=== PATIENT | female | born 1935 | race Caucasian/White ===

== ENCOUNTER 2018-02-13 19:12 | Observation (INO) ==
--- NOTE | 2018-02-13 21:20 | Emergency Department Note ---
Disposition Clinical Impression: Atypical chest pain Disposition: Admitted As Inpatient Time of Disposition: 23:10 General Adult HPI - General Chief complaint: ED Chest Pain Stated complaint: "States Heart Feels Funny" Time Seen by Provider: 02/13/18 21:00 Source: patient Mode of arrival: ambulatory Limitations: no limitations Nursing Notes Reviewed: Yes Vital Signs Reviewed: Yes - History of Present Illness HPI Narrative: She is 82 year old woman with pmh significant for HTN, HLD, pacemaker, anxiety, who presents to ED complaining of chest pressure. The pressure started while doing housework and is located in L peristernal with radiation to L shoulder. She states she had no pain just discomfort, denied sob, diaphoresis, diplopia, blurry vision, presyncope, syncope, fall, numbness/paresthesia, muscle weakness , hx of DVT. When the episodes occur they last varying amounts of time from minutes to hours. Was worse with exertion today. Says she has had similar feeling previously when her BP was high. Pt Subjective Complaint: chest discomfort Onset (ago): hour(s) Location: chest Radiation: extremity (L shoulder) Pain Severity: moderate Pain Scale: 4 Quality: other (pressure) Consistency: intermittent Improves with: nothing Worsens with: movement Associated symptoms: Reports: other (nausea ) Treatments Prior to Arrival: none - Related Data Home Medications Medication Instructions Recorded Confirmed Aspirin Enteric Coated [Aspirin EC] 81 mg PO QAM 12/07/14 02/13/18 Atorvastatin [Lipitor] 20 mg PO HS 02/10/15 02/13/18 Levothyroxine [Synthroid] 50 mcg PO QAM 02/10/15 02/13/18 Mirtazapine 3.75 mg PO HS 11/24/15 02/14/18 Calcium Carbonate/Vitamin D3 1 each PO DAILY 02/13/18 02/13/18 [Calcium 500 mg Chewable Tablet] Cholecalciferol (Vitamin D3) 2,000 unit PO DAILY 02/13/18 02/13/18 [Vitamin D] Previous Rx's Medication Instructions Recorded Carvedilol [Coreg] 25 mg PO BID #60 tablet 02/22/15 Allergies Allergy/AdvReac Type Severity Reaction Status Date / Time No Known Allergies Allergy Verified 08/02/17 14:04 All systems ED: reviewed and negative except as stated. Eyes: Denies: vision change Cardiovascular: Denies: chest pain, palpitations, dyspnea on exertion, edema, syncope Respiratory: Denies: dyspnea Gastrointestinal: Reports: nausea. Denies: abdominal pain, vomiting Musculoskeletal: Denies: neck pain Neurological: Reports: headache. Denies: numbness, paresthesias, confusion Psychiatric: Reports: anxiety Past Medical History - Past Medical History Medical history: Reports: cardiomyopathy, hypertension Surgical history: Reports: hysterectomy, orthopedic, other, pacemaker/AICD Psychiatric history: Reports: no psych history HOP GROWER history: Reports: no HOP GROWER history - Social History Smoking Status: Never smoker Smokeless Tobacco Status: No Alcohol use: Reports: none Drug use: Reports: none Physical Exam - General Limitations: no limitations General appearance: alert, in no apparent distress - Head Head exam: atraumatic, normocephalic, normal inspection - Eye Eye exam: Present: normal appearance - ENT ENT exam: mucous membranes moist - Neck Neck exam: Present: trachea midline - Chest Chest inspection: Present: normal inspection, symmetric chest wall rise - Respiratory Respiratory exam: Present: normal lung sounds bilaterally - Cardiovascular Cardiovascular exam: Present: regular rate, normal rhythm, normal heart sounds, +S1, +S2 - Abdominal Exam Abdominal exam: Present: soft, Non-Tender - Extremities Exam Extremities exam: Present: normal inspection, normal capillary refill. Absent: pedal edema, calf tenderness - Expanded Lower Extremity Exam Neurovascular/Tendon exam: Present: normal capillary refill - Neurological Exam Neurological exam: Present: alert - Psychiatric Psychiatric exam: Present: normal affect - Skin Skin exam: Present: warm, dry, intact, normal color Course Course Narrative: Presents to ED 4 hours post chest pressure with L shoulder radiation that was worse with exertion. Symptoms began while doing house work. BP 178/83. Will get cbc, bmp, troponin, cxr, and ECG now. ECG 1937: nsr, hr 66, pr 299, qt 406, decreased amplitude st v2, electronic atrial pacemaker, no acute changes when compared to ECG from 06/09/15. 2139: Troponin neg, no acute abnormality on cxr. No pain currently but states she had the chest discomfort when standing for the cxr previously. 2299: Will repeat troponin now. She does not feel comfortable going home with her current chest discomfort. HEART score 4. Hospitalist service accepted admission. Vital Signs Temperature 98.2 F 02/13/18 19:33 Pulse Rate 70 02/13/18 19:33 Respiratory Rate 16 02/13/18 19:33 Blood Pressure 178/83 02/13/18 19:33 O2 Sat by Pulse Oximetry 99 02/13/18 19:33 Temperature 98.2 F 02/13/18 23:42 Pulse Rate 63 02/13/18 23:42 Respiratory Rate 16 02/13/18 23:42 Blood Pressure 153/71 02/13/18 23:42 O2 Sat by Pulse Oximetry 99 02/13/18 23:42 Oxygen Delivery Oxygen Delivery Room Air Medical Decision Making - Lab Data Result diagrams: 02/13/18 19:50 02/13/18 19:50 Lab Results 02/13/18 02/13/18 02/13/18 Range/Units 19:40 19:50 19:50 WBC 6.8 (4.3-11.1) K/mcL RBC 3.80 L (3.82-4.97) M/mcL Hgb 11.8 (11.5-15.4) g/dL Hct 36.8 (35.3-44.9) % MCV 96.8 (83.0-100.0) fL MCH 31.1 (28.0-33.3) pg MCHC 32.1 (31.6-35.5) g/dL RDW 11.7 (11.5-14.5) % Plt Count 259 (140-400) K/mcL MPV 10.6 (9.4-12.4) fL Immature Gran % 0.3 (0-4) % Seg Neutrophils % 73.0 % Lymphocytes % 17.6 % Monocytes % 6.4 % Eosinophils % 2.6 % Basophils % 0.1 % Neutrophils # 5.0 (1.6-8.9) K/mcL Lymphocytes # 1.2 (0.6-4.6) K/mcL Monocytes # 0.4 (0.0-1.3) K/mcL Eosinophils # 0.2 (0.0-0.6) K/mcL Basophils # 0.0 (0.0-0.2) K/mcL PT 12.1 (9.4-12.1) Seconds INR 1.1 APTT 39.7 H (26.0-36.0) Seconds Sodium 141 (136-145) mEq/L Potassium 4.0 (3.5-5.1) mEq/L Chloride 104 (98-107) mEq/L Carbon Dioxide 27 (23-29) mEq/L BUN 24 H (8-23) mg/dL Creatinine 1.82 H (0.60-1.20) mg/dL Est GFR ( Amer) 32 L (> 60) Est GFR (Non-Af Amer) 27 L (> 60) BUN/Creatinine Ratio 13 (6-26) Glucose 141 H (70-105) mg/dL Calculated Osmolality 298 (280-300) Calcium 10.2 (8.6-10.3) mg/dL Troponin I < 0.03 (< 0.04) ng/mL 02/13/18 Range/Units 22:53 WBC (4.3-11.1) K/mcL RBC (3.82-4.97) M/mcL Hgb (11.5-15.4) g/dL Hct (35.3-44.9) % MCV (83.0-100.0) fL MCH (28.0-33.3) pg MCHC (31.6-35.5) g/dL RDW (11.5-14.5) % Plt Count (140-400) K/mcL MPV (9.4-12.4) fL Immature Gran % (0-4) % Seg Neutrophils % % Lymphocytes % % Monocytes % % Eosinophils % % Basophils % % Neutrophils # (1.6-8.9) K/mcL Lymphocytes # (0.6-4.6) K/mcL Monocytes # (0.0-1.3) K/mcL Eosinophils # (0.0-0.6) K/mcL Basophils # (0.0-0.2) K/mcL PT (9.4-12.1) Seconds INR APTT (26.0-36.0) Seconds Sodium (136-145) mEq/L Potassium (3.5-5.1) mEq/L Chloride (98-107) mEq/L Carbon Dioxide (23-29) mEq/L BUN (8-23) mg/dL Creatinine (0.60-1.20) mg/dL Est GFR ( Amer) (> 60) Est GFR (Non-Af Amer) (> 60) BUN/Creatinine Ratio (6-26) Glucose (70-105) mg/dL Calculated Osmolality (280-300) Calcium (8.6-10.3) mg/dL Troponin I 0.03 (< 0.04) ng/mL
[2018-02-13 21:32] LABS: Basophils % 0.1 %; Eosinophils # 0.2 K/mcL (0.0-0.6); Eosinophils % 2.6 %; Hematocrit 36.8 % (35.3-44.9); Hemoglobin 11.8 g/dL (11.5-15.4); Immature Granulocytes % 0.3 % (0-4); Lymphocytes # 1.2 K/mcL (0.6-4.6); Lymphocytes % 17.6 %; Mean Corpuscular HGB Conc 32.1 g/dL (31.6-35.5); Mean Corpuscular Hemoglobin 31.1 pg (28.0-33.3); Mean Corpuscular Volume 96.8 fL (83.0-100.0); Mean Platelet Volume 10.6 fL (9.4-12.4); Monocytes # 0.4 K/mcL (0.0-1.3); Monocytes % 6.4 %; Platelet Count 259 K/mcL (140-400); Red Cell Distribution Width 11.7 % (11.5-14.5); Troponin I < 0.03 ng/mL (< 0.04)
[2018-02-13 21:36] LABS: INR 1.1; Prothrombin Time 12.1 Seconds (9.4-12.1)
[2018-02-13 21:39] LABS: Activated Partial Thrombo Time 39.7 Seconds (26.0-36.0)
[2018-02-13 21:40] LABS: BUN/Creatinine Ratio 13 (6-26); Blood Urea Nitrogen 24 mg/dL (8-23); Calcium 10.2 mg/dL (8.6-10.3); Carbon Dioxide 27 mEq/L (23-29); Chloride 104 mEq/L (98-107); Glucose 141 mg/dL (70-105); Osmolality,Calculated 298 (280-300); Sodium 141 mEq/L (136-145); eGFR For Non-African Americans 27 (> 60)
[2018-02-13] MEDS ORDERED: Aspirin 81 MG TAB.CHEW PO STA (23:02)
[2018-02-14] MEDS ORDERED: Naloxone 0.4 MG/ML INJ IVP PRN (00:19)
[2018-02-14] MEDS ORDERED: Nitroglycerin 0.4 MG TAB.SUBL SL PRN (00:27)
[2018-02-14 00:42] LABS: Bilirubin,Urine Negative (Negative); Blood,Urine Negative (Negative); Clarity,Urine Clear (Clear); Color,Urine Yellow (Yellow); Glucose,Urine (UA) Normal (Normal); Ketones,Urine Negative (Negative); Leukocyte Esterase,Urine Trace (Negative); Nitrite,Urine Negative (Negative); PH,Urine 7.5 pH Units (5.0-8.0); Protein,Urine Trace mg/dL (Neg-Trace); Specific Gravity,Urine 1.013 (1.010-1.025); Urobilinogen,Urine Normal (Normal)
[2018-02-14 00:44] LABS: Bacteria,Urine None Seen per hpf (None-Few); Hyaline Casts,Urine None Seen per lpf (None-Few); RBC,Urine 0-3 per hpf (0-3); Squamous Epithelial Cell,Urine Moderate per lpf (None-Few); WBC,Urine 0-3 per hpf (0-3)
[2018-02-14] MEDS: *HR* Heparin 5,000 UNIT/ML VIAL SQ SCH ×3 (00:47→17:32)
--- NOTE | 2018-02-14 00:54 | Internal Med History&Physical ---
Date of Encounter: 02/14/18 Time of Encounter: 00:51 Internal Medicine - H&P: HPI Chief complaint: Chest Pain History of present illness: Ms. Galeas is a 82 year old female with a past medical history of chronic kidney disease, hypertension, nonobstructive coronary artery disease, hypothyroidism who presents with chest pain. Patient states that around 4:30 yesterday afternoon she began having which she described as left sided chest discomfort associated with left shoulder pain. 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 Shortly after symptoms started she sat down to rest and her symptoms did partially subside. She does endorse some nausea with her episode. Patient is unsure whether her symptoms were pleuritic or positional, however, she denies any shortness of breath, diaphoresis or dizziness or lightheadedness. No recent fever, chills, shortness of breath, cough, abdominal pain or lower extremity edema. Initial laboratory workup was negative for elevated troponin. EKG and chest x-ray was unremarkable. Past Med Surg Social Fam HX - Past Medical History Medical history: cardiomyopathy, hypertension Additional medical history: GI bleeding 01/21/05, prior dislocation of R shoulder p fall Psychiatric history: no psych history - Past Surgical History Surgical History: hysterectomy, orthopedic, other, pacemaker/AICD Additional surgical history: Bilat knee surgery, right hip surgery - Social History Smoking Status: Never smoker Smokeless Tobacco Status: No Alcohol use: none Drug use: none - Family History Mother Adopted: No Age: 95 Family Member Ethnicity: Non- Living Status: Age at : 95 Cause of : Natural causes Father Adopted: No Age: 71 Family Member Ethnicity: Non- Living Status: Age at : 71 Cause of : "heart problems" Hx Family Cardiac Disorders: Yes (heart disease) Internal Medicine - H&P: Meds Aspirin Enteric Coated [Aspirin EC] 81 mg PO QAM 12/07/14 [History] Atorvastatin [Lipitor] 20 mg PO HS 02/10/15 [History] Levothyroxine [Synthroid] 50 mcg PO QAM 02/10/15 [History] Mirtazapine 3.75 mg PO HS 11/24/15 [History] Calcium Carbonate/Vitamin D3 [Calcium 500 mg Chewable Tablet] 1 tab PO DAILY 01/23 [History] Cholecalciferol (Vitamin D3) [Vitamin D3] 2,000 unit PO DAILY 02/13/18 [History] Amlodipine Besylate 2.5 mg PO DAILY 02/14/18 [History] Carvedilol [Coreg] 25 mg PO BID 02/14/18 [History] 3 Allergy/AdvReac Type Severity Reaction Status Date / Time No Known Allergies Allergy Verified 08/02/17 14:04 All Systems PM: A 10-system review of systems was performed and is negative for pertinent findings except as documented above in the HPI. - Constitutional Constitutional: no chills, no fever(s), no night sweats - EENT Eyes: no change in vision, no discharge, no pain, no photophobia Ears: no ear discharge, no ear pain, no tinnitus Nose, mouth and throat: no dysphagia, no nasal discharge, no neck pain, no sore throat - Cardiovascular Cardiovascular ROS IM: no chest pain, no diaphoresis, no dyspnea, no lightheadedness, no palpitations, no syncope - Respiratory Respiratory: no cough, no dyspnea, no wheezing, no excessive phlegm production - Gastrointestinal Gastrointestinal: no abdominal pain, no diarrhea, no hematemesis, no hematochezia, no melena, no nausea, no vomiting - Genitourinary Genitourinary: no change in urinary stream, no dysuria, no flank pain, no hematuria - Musculoskeletal Musculoskeletal ROS IM: no numbness, no tingling - Integumentary Integumentary IM: no rash, no unusual bruising - Neurological Neurological ROS: no confusion, no convulsions, no focal weakness, no numbness, no tingling, no tremor(s) - Hematologic/Lymphatic Hematologic/Lymphatic: no easy bruising - Constitutional Vitals: Temp Pulse Resp BP Pulse Ox 97.7 F 65 16 184/86 97 02/14/18 00:50 02/14/18 00:50 02/14/18 00:50 02/14/18 00:50 02/14/18 00:50 Exam: General: Alert and oriented 3; in no acute distress Skin:Normal color, no rash, no lesions. HEENT:EOM, pupils equal, round and reactive. Cardiovascular:Normal S1 & S2, no rubs, murmurs or gallops. No JVD. Pulse regular. Lungs:Normal breath sounds, no wheezes or crackles. Abdomen:Soft, non-tender, no rigidity. Extremities:No deformity, no edema or tenderness, no joint swelling or clubbing. Neurological:Normal cognition and motor skills. Pulses:Carotid and radial pulses normal +2. Rest of the physical exam is non contributory Internal Med - H&P Results - Labs CBC & Chem 7: 02/13/18 19:50 02/14/18 06:05 Labs: Urine 02/14/18 Range/Units 00:30 Urine Color Yellow (Yellow) Urine Clarity Clear (Clear) Urine pH 7.5 (5.0-8.0) pH Units Ur Specific Davidson 1.013 (1.010-1.025) Urine Protein Trace (Neg-Trace) mg/dL Urine Glucose (UA) Normal (Normal) mg/dL - Assessment and plan (1) Chest pain Status: Acute Assessment and plan: Left-sided chest pain associated with left shoulder pain in the setting of exertion and partially relieved by rest. No abnormal changes on EKG. Negative troponins. Patient received loading dose of aspirin. Trend troponin Continue telemetry Stress test in the morning Qualifiers: Chest pain type: unspecified Qualified Code(s): R07.9 - Chest pain, unspecified (2) [id number] kidney injury Status: Acute Assessment and plan: Acute on chronic kidney injury likely prerenal. We will give patient 1 L of normal saline. Check a.m. chemistry. Qualifiers: Acute renal failure type: unspecified Chronic kidney disease stage: unspecified stage Qualified Code(s): N17.9 - Acute kidney failure, unspecified ; N18.9 - Chronic kidney disease, unspecified (3) Hyperlipidemia Status: Chronic Assessment and plan: Continue home dose of atorvastatin Qualifiers: Hyperlipidemia type: unspecified Qualified Code(s): E78.5 - Hyperlipidemia , unspecified (4) Hypertension Status: Chronic Assessment and plan: Continue home antihypertensives. We will add one-time dose of hydralazine for elevated blood pressure. Qualifiers: Hypertension type: unspecified Qualified Code(s): I10 - Essential (primary ) hypertension (5) Hypothyroidism Status: Chronic Assessment and plan: Continue home levothyroxin Qualifiers: Hypothyroidism type: unspecified Qualified Code(s): E03.9 - Hypothyroidism , unspecified - Time Spent With Patient Total time spent is greater than 50% in coordination of care (as documented) at patient's floor/unit and/or counseling patient:
[2018-02-14] MEDS ORDERED: 0.9 % Sodium Chloride 1,000 ML IVC SCH (01:00)
[2018-02-14] MEDS ORDERED: Regadenoson 0.4 MG/5 ML SYRINGE IVP ONE (05:30)
[2018-02-14 06:53] LABS: Alanine Aminotransferase 12 Units/L (7-52); Albumin 3.9 g/dL (3.5-5.7); Alkaline Phosphatase 78 Units/L (34-104); Aspartate Amino Transferase 17 Units/L (13-39); BUN/Creatinine Ratio 15 (6-26); Bilirubin,Total 0.3 mg/dL (0.3-1.0); Blood Urea Nitrogen 20 mg/dL (8-23); Calcium 9.7 mg/dL (8.6-10.3); Carbon Dioxide 26 mEq/L (23-29); Chloride 106 mEq/L (98-107); Globulin 4.1 g/dL (2.4-3.5); Glucose 130 mg/dL (70-105); Osmolality,Calculated 296 (280-300); Potassium 3.6 mEq/L (3.5-5.1); Sodium 141 mEq/L (136-145); Troponin I < 0.03 ng/mL (< 0.04); eGFR For Non-African Americans 38 (> 60)
[2018-02-14] MEDS ORDERED: Cholecalciferol (D-3) 1,000 UNIT TABLET PO SCH (09:00)
[2018-02-14] MEDS ORDERED: Aspirin Enteric Coated 81 MG Tablet PO SCH (09:00)
--- NOTE | 2018-02-14 09:43 | Electrocardiograph Report ---
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
[2018-02-14] MEDS ORDERED: amLODIPine 5 MG TABLET PO SCH (15:00)
[2018-02-14 17:28] VITALS: BP 134/70
--- NOTE | 2018-02-14 19:49 | Discharge Summary ---
- NOTES TO OUTPATIENT PROVIDER Notes to Outpatient Provider: Pt hospitalized for chest pain and headache. She had negative stress test. BP was high and controlled at discharge. Orders not resulted at time of discharge: Pending orders 02/14/18 00:47 NM diana perf SPECT multi [NM] Routine Date of Encounter: 02/14/18 Time of Encounter: 18:00 - Discharge Diagnosis (1) Chest pain Priority: Primary Status: Ruled-out Qualifiers: Chest pain type: chest pain due to myocardial ischemia Ischemic chest pain type: unstable angina pectoris Qualified Code(s): I20.0 - Unstable angina (2) Hypothyroidism Priority: Secondary Status: Chronic Qualifiers: Hypothyroidism type: acquired Qualified Code(s): E03.9 - Hypothyroidism, unspecified (3) Hyperlipidemia Priority: Secondary Status: Chronic Qualifiers: Hyperlipidemia type: mixed hyperlipidemia Qualified Code(s): E78.2 - Mixed hyperlipidemia (4) Hypertension Priority: Secondary Status: Chronic Qualifiers: Hypertension type: essential hypertension Qualified Code(s): I10 - Essential (primary) hypertension (5) [id number] kidney injury Priority: Secondary Status: Resolved Qualifiers: Acute renal failure type: unspecified Chronic kidney disease stage: stage 3 (moderate) Qualified Code(s): N17.9 - Acute kidney failure, unspecified; N18.3 - Chronic kidney disease, stage 3 (moderate) Hospital course: Ms. Galeas is a 82 year old female with hx of HTN presented to ED with substernal chest discomfort. She was placed in observation for further evaluation. Ms Galeas was placed in observation. She was continued on home meds. She underwent stress test which was negative. Her BP was elevated and her meds were given. She had improvement. At this time she is afebrile and BP controlled. She is ready for discharge home. Discharge discussed with: patient, family - Time Spent with Patient Total time spent providing and/or coordinating discharge services: - Discharge Medications Home Medications: Aspirin Enteric Coated [Aspirin EC] 81 mg PO QAM 12/07/14 [History] Atorvastatin [Lipitor] 20 mg PO HS 02/10/15 [History] Levothyroxine [Synthroid] 50 mcg PO QAM 02/10/15 [History] Mirtazapine 3.75 mg PO HS 11/24/15 [History] Calcium Carbonate/Vitamin D3 [Calcium 500 mg Chewable Tablet] 1 tab PO DAILY 01/23 [History] Cholecalciferol (Vitamin D3) [Vitamin D3] 2,000 unit PO DAILY 02/13/18 [History] Amlodipine Besylate 2.5 mg PO DAILY 02/14/18 [History] Carvedilol [Coreg] 25 mg PO BID 02/14/18 [History] Allergies/Adverse Reactions: 3 Allergy/AdvReac Type Severity Reaction Status Date / Time No Known Allergies Allergy Verified 08/02/17 14:04 Date of admission: 02/13/18 23:23 Primary care physician: Raymond Pepper MD Discharging clinician: Tyson Tompkins Anticipated date of discharge: 02/14/18 - Constitutional Vitals: Temp Pulse Resp BP Pulse Ox 97.7 F 64 18 134/70 95 02/14/18 15:30 02/14/18 17:27 02/14/18 11:10 02/14/18 17:27 02/14/18 15:30 General appearance: Present: A&O X 3, pleasant Exam: See below - Head Head exam: Present: normocephalic - Eye Eye exam: Present: EOMI, conjuntiva pink - ENT ENT exam: Present: mucous membranes moist - Respiratory Respiratory exam: Present: CTAB. Absent: rales, rhonchi, wheezes - Cardiovascular Cardiovascular exam: Present: RRR. Absent: systolic murmur, tachycardia - GI/Abdominal GI/Abdominal exam: Present: soft. Absent: tenderness - Extremities Exam Extremities exam: Present: warm. Absent: tenderness - Neurological Exam Neurological exam: Present: alert, oriented X3 - Skin Skin exam: Present: dry, warm - Patient Status Disposition: Home, Self-Care Condition: Good - Discharge Instructions Instructions: Chest Pain (GEN) Follow Up With: Raymond Pepper MD [Primary Care Provider] -
[2018-02-14] MEDS ORDERED: Mirtazapine 15 MG TABLET PO SCH (21:00)
--- NOTE | 2018-02-20 15:25 | Emergency Department Note ---
Disposition Clinical Impression: Atypical chest pain Disposition: Admitted As Inpatient Condition: Good General Adult HPI - General Chief complaint: ED Chest Pain Stated complaint: "States Heart Feels Funny" Time Seen by Provider: 02/13/18 21:00 Source: patient Mode of arrival: ambulatory Limitations: no limitations - History of Present Illness Location: chest Pain Scale: 4 Quality: other (pressure) Improves with: nothing Worsens with: movement Associated symptoms: Reports: other (nausea ) Treatments Prior to Arrival: none - Related Data Home Medications Medication Instructions Recorded Confirmed Aspirin Enteric Coated [Aspirin EC] 81 mg PO QAM 12/07/14 02/14/18 Atorvastatin [Lipitor] 20 mg PO HS 02/10/15 02/14/18 Levothyroxine [Synthroid] 50 mcg PO QAM 02/10/15 02/14/18 Mirtazapine 3.75 mg PO HS 11/24/15 02/14/18 Calcium Carbonate/Vitamin D3 1 tab PO DAILY 02/13/18 02/14/18 [Calcium 500 mg Chewable Tablet] Cholecalciferol (Vitamin D3) 2,000 unit PO DAILY 02/13/18 02/14/18 [Vitamin D3] Amlodipine Besylate 2.5 mg PO DAILY 02/14/18 02/14/18 Carvedilol [Coreg] 25 mg PO BID 02/14/18 02/14/18 Allergies Allergy/AdvReac Type Severity Reaction Status Date / Time No Known Allergies Allergy Verified 08/02/17 14:04 Eyes: Denies: vision change Cardiovascular: Denies: chest pain, palpitations, dyspnea on exertion, edema, syncope Respiratory: Denies: dyspnea Gastrointestinal: Reports: nausea. Denies: abdominal pain, vomiting Musculoskeletal: Denies: neck pain Neurological: Reports: headache. 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 - Social History Smoking Status: Never smoker Smokeless Tobacco Status: No Alcohol use: Reports: none Drug use: Reports: none Physical Exam - General Limitations: no limitations General appearance: alert, in no apparent distress Course Vital Signs Temperature 98.2 F 02/13/18 19:33 Pulse Rate 70 02/13/18 19:33 Respiratory Rate 16 02/13/18 19:33 Blood Pressure 178/83 02/13/18 19:33 O2 Sat by Pulse Oximetry 99 02/13/18 19:33 Temperature 97.7 F 02/14/18 15:30 Pulse Rate 64 02/14/18 17:27 Respiratory Rate 18 02/14/18 11:10 Blood Pressure 134/70 02/14/18 17:27 O2 Sat by Pulse Oximetry 95 02/14/18 15:30 Oxygen Delivery Oxygen Delivery Room Air Medical Decision Making - Lab Data Result diagrams: 02/13/18 19:50 02/14/18 06:05 Lab Results 02/13/18 02/13/18 02/13/18 Range/Units 19:40 19:50 19:50 WBC 6.8 (4.3-11.1) K/mcL RBC 3.80 L (3.82-4.97) M/mcL Hgb 11.8 (11.5-15.4) g/dL Hct 36.8 (35.3-44.9) % MCV 96.8 (83.0-100.0) fL MCH 31.1 (28.0-33.3) pg MCHC 32.1 (31.6-35.5) g/dL RDW 11.7 (11.5-14.5) % Plt Count 259 (140-400) K/mcL MPV 10.6 (9.4-12.4) fL Immature Gran % 0.3 (0-4) % Seg Neutrophils % 73.0 % Lymphocytes % 17.6 % Monocytes % 6.4 % Eosinophils % 2.6 % Basophils % 0.1 % Neutrophils # 5.0 (1.6-8.9) K/mcL Lymphocytes # 1.2 (0.6-4.6) K/mcL Monocytes # 0.4 (0.0-1.3) K/mcL Eosinophils # 0.2 (0.0-0.6) K/mcL Basophils # 0.0 (0.0-0.2) K/mcL PT 12.1 (9.4-12.1) Seconds INR 1.1 APTT 39.7 H (26.0-36.0) Seconds Sodium 141 (136-145) mEq/L Potassium 4.0 (3.5-5.1) mEq/L Chloride 104 (98-107) mEq/L Carbon Dioxide 27 (23-29) mEq/L BUN 24 H (8-23) mg/dL Creatinine 1.82 H (0.60-1.20) mg/dL Est GFR ( Amer) 32 L (> 60) Est GFR (Non-Af Amer) 27 L (> 60) BUN/Creatinine Ratio 13 (6-26) Glucose 141 H (70-105) mg/dL Calculated Osmolality 298 (280-300) Calcium 10.2 (8.6-10.3) mg/dL Troponin I < 0.03 (< 0.04) ng/mL 02/13/18 Range/Units 22:53 WBC (4.3-11.1) K/mcL RBC (3.82-4.97) M/mcL Hgb (11.5-15.4) g/dL Hct (35.3-44.9) % MCV (83.0-100.0) fL MCH (28.0-33.3) pg MCHC (31.6-35.5) g/dL RDW (11.5-14.5) % Plt Count (140-400) K/mcL MPV (9.4-12.4) fL Immature Gran % (0-4) % Seg Neutrophils % % Lymphocytes % % Monocytes % % Eosinophils % % Basophils % % Neutrophils # (1.6-8.9) K/mcL Lymphocytes # (0.6-4.6) K/mcL Monocytes # (0.0-1.3) K/mcL Eosinophils # (0.0-0.6) K/mcL Basophils # (0.0-0.2) K/mcL PT (9.4-12.1) Seconds INR APTT (26.0-36.0) Seconds Sodium (136-145) mEq/L Potassium (3.5-5.1) mEq/L Chloride (98-107) mEq/L Carbon Dioxide (23-29) mEq/L BUN (8-23) mg/dL Creatinine (0.60-1.20) mg/dL Est GFR ( Amer) (> 60) Est GFR (Non-Af Amer) (> 60) BUN/Creatinine Ratio (6-26) Glucose (70-105) mg/dL Calculated Osmolality (280-300) Calcium (8.6-10.3) mg/dL Troponin I 0.03 (< 0.04) ng/mL Attestation Statement - Attestation Attestation: I examined this patient and my medical decision-making was reviewed with the Resident Physician. I agree with the documented findings, disposition and treatment plan as described except to the extent set forth below. HEART score is 4. I had an in-depth shared decision-making discussion with the patient and her family at bedside. Discussed the 4% risk of major adverse cardiac event in the next 4-6 weeks, explained that many of these are elective stent placements and that the best information that we have is that the likelihood of over the next 5-7 days is significantly less than 1 in 1, 000. Pt was not comfortable with going home, admission reasonable based on HEART score 4.
== END 2018-02-14 18:30 | disposition home or self-care (01) ==
LOC: EMEROOARM 19:12 → 3NENU 19:12 → SUATTDRO 23:23 → 3NENU 23:47
PROVIDERS: ADMIT Internal Medicine; ATTEND Internal Medicine

== ENCOUNTER 2019-12-17 20:16 | Observation (INO) ==
[2019-12-17 21:10] LABS: Basophils % 0.5 %; Eosinophils # 0.2 K/mcL (0.0-0.6); Hematocrit 36.6 % (35.3-44.9); Hemoglobin 11.6 g/dL (11.5-15.4); Immature Granulocytes % 0.3 % (0-4); Lymphocytes % 17.2 %; Mean Corpuscular HGB Conc 31.7 g/dL (31.6-35.5); Mean Corpuscular Hemoglobin 30.9 pg (28.0-33.3); Mean Corpuscular Volume 97.6 fL (83.0-100.0); Mean Platelet Volume 9.5 fL (9.4-12.4); Monocytes # 0.4 K/mcL (0.0-1.3); Monocytes % 6.6 %; Neutrophils # 4.4 K/mcL (1.6-8.9); Platelet Count 235 K/mcL (140-400); Red Blood Count 3.75 M/mcL (3.82-4.97); Red Cell Distribution Width 11.6 % (11.5-14.5); Segmented Neutrophils % 72.4 %; White Blood Count 6.1 K/mcL (4.3-11.1)
[2019-12-17 21:35] LABS: BUN/Creatinine Ratio 14 (6-26); Blood Urea Nitrogen 20 mg/dL (8-23); Calcium 9.1 mg/dL (8.6-10.3); Carbon Dioxide 25 mEq/L (23-29); Chloride 106 mEq/L (98-107); Glucose 162 mg/dL (70-105); Osmolality,Calculated 296 (280-300); Potassium 3.8 mEq/L (3.5-5.1); Sodium 140 mEq/L (136-145); eGFR For African Americans 43 (> 60); eGFR For Non-African Americans 36 (> 60)
[2019-12-17 21:36] LABS: Troponin I < 0.03 ng/mL (< 0.04)
[2019-12-17] MEDS ORDERED: amLODIPine 5 MG TABLET PO STA (22:29)
[2019-12-18] MEDS ORDERED: Ondansetron 4 MG/2 ML VIAL IVP ONE (00:46)
[2019-12-18] MEDS ORDERED: Aspirin 81 MG TAB.CHEW PO ONE (00:48)
[2019-12-18] MEDS ORDERED: Perflutren Lipid Microsphere 1.3 ML in 0.9 % Sodium Chloride 8.7 ML IVP PRN (00:51)
[2019-12-18] MEDS ORDERED: Acetaminophen 325 MG TABLET PO PRN (00:54)
[2019-12-18] MEDS ORDERED: Naloxone 0.4 MG/ML INJ IVP PRN (00:54)
[2019-12-18 04:41] LABS: Hematocrit 35.1 % (35.3-44.9); Hemoglobin 11.4 g/dL (11.5-15.4); Mean Corpuscular HGB Conc 32.5 g/dL (31.6-35.5); Mean Corpuscular Hemoglobin 30.9 pg (28.0-33.3); Mean Corpuscular Volume 95.1 fL (83.0-100.0); Mean Platelet Volume 9.4 fL (9.4-12.4); Platelet Count 234 K/mcL (140-400); Red Blood Count 3.69 M/mcL (3.82-4.97); Red Cell Distribution Width 11.5 % (11.5-14.5); White Blood Count 6.9 K/mcL (4.3-11.1)
[2019-12-18 04:58] LABS: Calcium 9.4 mg/dL (8.6-10.3); Magnesium 1.8 mg/dL (1.6-2.6); Phosphorous 3.3 mg/dL (2.7-4.5); Potassium 3.9 mEq/L (3.5-5.1)
[2019-12-18] MEDS ORDERED: Ondansetron 4 MG/2 ML VIAL IVP PRN (05:00)
[2019-12-18 05:14] LABS: Thyroid Stimulating Hormone 1.486 mcIU/mL (0.340-5.600)
[2019-12-18] MEDS ORDERED: *HR* Heparin 5,000 UNIT/ML VIAL SQ SCH (06:00)
[2019-12-18 08:48] LABS: Bilirubin,Urine Negative (Negative); Blood,Urine Negative (Negative); Clarity,Urine Turbid (Clear); Color,Urine Light-Yellow (Yellow); Glucose,Urine (UA) Normal (Normal); Ketones,Urine Negative (Negative); Leukocyte Esterase,Urine Large (Negative); Mucus,Urine Few per lpf (None-Few); Nitrite,Urine Negative (Negative); Protein,Urine 100 mg/dL (Neg-Trace); Squamous Epithelial Cell,Urine Few per hpf (None-Few); Urobilinogen,Urine Normal (Normal); WBC,Urine TNTC per hpf (0-3)
[2019-12-18] MEDS ORDERED: carvediloL 25 MG TABLET PO ONE (11:39)
[2019-12-18 12:27] VITALS: BP 129/63
[2019-12-18] MEDS ORDERED: carvediloL 25 MG TABLET PO SCH (17:00)
[2019-12-18] MEDS ORDERED: MIRTAZIPINE PO SCH (21:00)
== END 2019-12-18 14:35 | disposition home or self-care (01) ==
LOC: EMEROOARM 20:16 → 3BNU 20:16 → SUATTDRO 23:06 → 3BNU 23:51
PROVIDERS: ADMIT Student in an Organized Health Care Education/Training Program; ATTEND Nurse Practitioner Adult Health

== ENCOUNTER 2021-06-18 14:38 | Observation (INO) ==
[2021-06-18 15:20] LABS: Basophils % 0.3 %; Eosinophils # 0.2 K/mcL (0.0-0.6); Hemoglobin 12.1 g/dL (11.5-15.4); Immature Granulocytes % 0.2 % (0-4); Lymphocytes # 1.1 K/mcL (0.6-4.6); Lymphocytes % 17.6 %; Mean Corpuscular HGB Conc 31.8 g/dL (31.6-35.5); Mean Corpuscular Hemoglobin 31.3 pg (28.0-33.3); Mean Corpuscular Volume 98.4 fL (83.0-100.0); Mean Platelet Volume 9.7 fL (9.4-12.4); Monocytes # 0.5 K/mcL (0.0-1.3); Monocytes % 8.5 %; Neutrophils # 4.2 K/mcL (1.6-8.9); Platelet Count 241 K/mcL (140-400); Red Blood Count 3.86 M/mcL (3.82-4.97); Red Cell Distribution Width 11.8 % (11.5-14.5); Segmented Neutrophils % 70.4 %
[2021-06-18 15:28] LABS: INR 1.2; Prothrombin Time 13.5 Seconds (9.4-12.1)
[2021-06-18 15:59] LABS: BUN/Creatinine Ratio 19 (6-26); Blood Urea Nitrogen 26 mg/dL (8-23); Carbon Dioxide 29 mEq/L (23-29); Chloride 102 mEq/L (98-107); Glucose 129 mg/dL (70-105); Osmolality,Calculated 292 (280-300); Potassium 3.9 mEq/L (3.5-5.1); Sodium 138 mEq/L (136-145); Troponin I < 0.03 ng/mL (< 0.04); eGFR For African Americans 45 (> 60); eGFR For Non-African Americans 37 (> 60)
[2021-06-18] MEDS ORDERED: carvediloL 25 MG TABLET PO STA (16:21)
[2021-06-18] MEDS ORDERED: 0.9 % Sodium Chloride 500 ML IVC ONE (16:58)
[2021-06-18 17:45] LABS: Bacteria,Urine Few per hpf (None-Few); Bilirubin,Urine Negative (Negative); Blood,Urine Negative (Negative); Clarity,Urine Clear (Clear); Color,Urine Colorless (Yellow); Glucose,Urine (UA) Normal (Normal); Ketones,Urine Negative (Negative); Leukocyte Esterase,Urine Large (Negative); Mucus,Urine Few per lpf (None-Few); Nitrite,Urine Negative (Negative); Protein,Urine Negative (Neg-Trace); Specific Gravity,Urine 1.005 (1.010-1.025); Squamous Epithelial Cell,Urine Few per hpf (None-Few); Urobilinogen,Urine Normal (Normal); WBC,Urine 15-30 per hpf (0-3)
[2021-06-18] MEDS ORDERED: amLODIPine 5 MG TABLET PO STA (17:48)
[2021-06-18] MEDS ORDERED: Naloxone 0.4 MG/ML INJ IVP PRN (18:12)
[2021-06-18] MEDS ORDERED: Ondansetron 4 MG/2 ML VIAL IVP PRN (18:12)
[2021-06-18] MEDS ORDERED: Acetaminophen 325 MG TABLET PO PRN (18:12)
[2021-06-18] MEDS ORDERED: Mag Hydrox/Al Hydrox/Simeth 30 ML UDC PO PRN (18:12)
[2021-06-18] MEDS ORDERED: MOM Conc 10 ML UD.LIQ PO PRN (18:12)
[2021-06-18] MEDS ORDERED: Perflutren Lipid Microsphere 1.3 ML in 0.9 % Sodium Chloride 8.7 ML IVP PRN (18:17)
[2021-06-18 18:25] LABS: Influenza A PCR Negative (Negative); Influenza B PCR Negative (Negative); Resp. Syncytial Virus PCR Negative (Negative); SARS-CoV-2 by PCR (In House) Negative (Negative)
[2021-06-18] MEDS: MIRTAZAPINE 7.5 MG PO SCH (20:25)
[2021-06-18] MEDS: cefTRIAXone 1,000 MG in Water for inj. (sterile) 10 ML IVP SCH (22:55)
[2021-06-19] MEDS ORDERED: Regadenoson 0.4 MG/5 ML SYRINGE IVP ONE (06:22)
[2021-06-19 06:23] LABS: Hematocrit 34.6 % (35.3-44.9); Hemoglobin 11.2 g/dL (11.5-15.4); Mean Corpuscular HGB Conc 32.4 g/dL (31.6-35.5); Mean Corpuscular Hemoglobin 31.5 pg (28.0-33.3); Mean Corpuscular Volume 97.2 fL (83.0-100.0); Mean Platelet Volume 9.7 fL (9.4-12.4); Platelet Count 220 K/mcL (140-400); Red Blood Count 3.56 M/mcL (3.82-4.97); Red Cell Distribution Width 11.8 % (11.5-14.5); White Blood Count 6.4 K/mcL (4.3-11.1)
[2021-06-19 06:43] LABS: Calcium 9.4 mg/dL (8.6-10.3); Chol/HDL Ratio 4.3 (0-4.9); Magnesium 1.9 mg/dL (1.6-2.6); Potassium 3.5 mEq/L (3.5-5.1)
[2021-06-19] MEDS: AMLODIPINE BESYLATE 2.5 MG PO SCH (10:31)
[2021-06-19] MEDS: Aspirin Enteric Coated 81 MG Tablet PO SCH (10:32)
[2021-06-19] MEDS: cefTRIAXone 1,000 MG in Water for inj. (sterile) 10 ML IVP SCH (10:32)
[2021-06-19] MEDS: carvediloL 25 MG TABLET PO SCH ×2 (10:39→17:48)
[2021-06-19] MEDS ORDERED: hydrALAZINE 10 MG TABLET PO ONE (12:34)
[2021-06-19] MEDS: MIRTAZAPINE 7.5 MG PO SCH (19:55)
[2021-06-20] MEDS ORDERED: *HR* Labetalol 20 MG/4 ML SYRINGE IVP ONE (03:54)
[2021-06-20] MEDS: AMLODIPINE BESYLATE 2.5 MG PO SCH (08:15)
[2021-06-20] MEDS: Aspirin Enteric Coated 81 MG Tablet PO SCH (08:23)
[2021-06-20] MEDS: amLODIPine 5 MG TABLET PO SCH (08:24)
[2021-06-20] MEDS: carvediloL 25 MG TABLET PO SCH ×2 (08:24→17:08)
[2021-06-20] MEDS: cefTRIAXone 1,000 MG in Water for inj. (sterile) 10 ML IVP SCH (08:24)
[2021-06-20] MEDS ORDERED: amLODIPine 5 MG TABLET PO SCH (09:00)
[2021-06-20] MEDS: Ampicillin/Sulbactam 1,500 MG in 0.9 % Sodium Chloride Mini Bag 100 ML IVPB SCH ×2 (17:08→23:07)
[2021-06-20] MEDS: Thiamine (B-1) 100 MG TABLET PO SCH (17:10)
[2021-06-21 04:46] LABS: Hematocrit 32.6 % (35.3-44.9); Hemoglobin 10.6 g/dL (11.5-15.4); Mean Corpuscular HGB Conc 32.5 g/dL (31.6-35.5); Mean Corpuscular Hemoglobin 31.8 pg (28.0-33.3); Mean Corpuscular Volume 97.9 fL (83.0-100.0); Mean Platelet Volume 9.8 fL (9.4-12.4); Platelet Count 209 K/mcL (140-400); Red Blood Count 3.33 M/mcL (3.82-4.97); Red Cell Distribution Width 11.9 % (11.5-14.5); White Blood Count 6.7 K/mcL (4.3-11.1)
[2021-06-21 05:03] LABS: Calcium 8.8 mg/dL (8.6-10.3); Potassium 3.3 mEq/L (3.5-5.1)
[2021-06-21] MEDS: Ampicillin/Sulbactam 1,500 MG in 0.9 % Sodium Chloride Mini Bag 100 ML IVPB SCH (05:26)
[2021-06-21] MEDS: Thiamine (B-1) 100 MG TABLET PO SCH (08:22)
[2021-06-21] MEDS: carvediloL 25 MG TABLET PO SCH (08:22)
[2021-06-21] MEDS: Aspirin Enteric Coated 81 MG Tablet PO SCH (08:22)
[2021-06-21] MEDS: amLODIPine 5 MG TABLET PO SCH (08:23)
[2021-06-21 10:47] VITALS: BP 156/68; PULSE 75; TEMP 97.8; O2SAT 97
== END 2021-06-21 13:17 | disposition home or self-care (01) ==
LOC: EMEROOARM 14:38 → 3BNU 14:38 → SUATTDRO 19:28 → 3BNU 19:54
PROVIDERS: ADMIT General Practice; ATTEND Internal Medicine